=== PATIENT | male | born 1955 | race African-American/Black ===

== ENCOUNTER 2017-10-07 13:18 | Emergency (ER) | payer MEDICAID ==
[~2017-10-07] VITALS: Ht 177.8 cm; Wt 80.0 kg
[~2017-10-07 13:18] MED LIST: ALBUTEROL INH; PREDNISONE; SINGULAR; VICODIN; XOPENEX
[2017-10-07 13:20] VITALS: BP 118/94
== END 2017-10-07 16:31 | disposition left against medical advice (07) ==
LOC: ER 13:35
DX: S01.01XA Laceration without foreign body of scalp, initial encounter (principal); Y00.XXXA Assault by blunt object, initial encounter; Y93.89 Activity, other specified; Y92.488 Other paved roadways as the place of occurrence of the external cause
CPT/HCPCS: 99283

== ENCOUNTER 2018-05-28 16:17 | Inpatient (IN) | payer MEDICAID ==
[~2018-05-28] VITALS: Ht 167.6 cm; Wt 87.7 kg
[2018-05-28] MEDS ORDERED: ALBUTEROL (0.083%) 2.5MG/3ML NEB HHN STA (16:25)
[2018-05-28] MEDS ORDERED: IPRATROPIUM BROMIDE (0.02%) 0.5MG/2.5ML NEB HHN STA (16:25)
[2018-05-28] MEDS ORDERED: METHYLPREDNISOLONE SOD SUCC 125 MG/2 ML VIAL IV STA (16:25)
[2018-05-28] MEDS ORDERED: MAGNESIUM 2 G PREMIX 50 ML IV ONE (16:30)
[2018-05-28] MEDS ORDERED: IPRATROPIUM BROMIDE (0.02%) 0.5MG/2.5ML NEB ONE (16:32)
[2018-05-28] MEDS ORDERED: ALBUTEROL (0.083%) 2.5MG/3ML NEB ONE (16:32)
[2018-05-28 16:57] LABS: BASOPHILS % 0.7 % (0.0-2.0); CHLORIDE 109 mEq/L (98-107); EOSINOPHILS % 2.3 % (0.0-5.0); HEMATOCRIT. 39.7 % (42.0-52.0); LYMPHOCYTES % 50.8 % (20.0-50.0); MEAN CORPUSCULAR HEMOGLOBIN 32.1 pg (28.0-32.0); MEAN PLATELET VOLUME 8.4 fl (7.4-10.4); MONOCYTES % 9.8 % (2.0-8.0); NEUTROPHILS % 36.4 % (40.0-76.0); PLATELET 282 x1000/uL (130-400); RED BLOOD CELL COUNT 4.05 mill/uL (4.7-6.1)
[2018-05-28] MEDS ORDERED: ACETAMINOPHEN 325MG TABLET PO PRN (21:45)
[2018-05-28] MEDS ORDERED: CLONIDINE 0.1MG TABLET PO PRN (21:45)
[2018-05-28] MEDS ORDERED: ONDANSETRON HCL 4MG/2ML INJ IV PRN (21:45)
[2018-05-29] VITALS (13 sets, daily range): BP systolic 120–169; BP diastolic 71–95
[2018-05-29] MEDS ORDERED: DEXT 5%/0.45% NACL 1000ML 1,000 ML IV SCH (02:00)
[2018-05-29 02:19] LABS: FOLIC ACID (FOLATE) SERUM 18.4 ng/mL (>5.38)
[2018-05-29] MEDS: METHYLPREDNISOLONE SOD SUCC 40 MG/ML VIAL IV SCH ×2 (02:29→09:48)
[2018-05-29] MEDS ORDERED: POTASSIUM CHLORIDE 20MEQ TABLET SR PO NR (06:00)
[2018-05-29] MEDS: IPRATROPIUM/ALBUTEROL 0.5-3(2.5)MG/3ML NEB INH SCH ×2 (06:22→09:07)
[2018-05-29 07:24] LABS: BASOPHILS % 0.1 % (0.0-2.0); HEMATOCRIT. 38.8 % (42.0-52.0); LYMPHOCYTES % 10.8 % (20.0-50.0); MEAN CORPUSCULAR VOLUME 95.8 fL (80.0-94.0); MEAN PLATELET VOLUME 8.8 fl (7.4-10.4); MONOCYTES % 1.5 % (2.0-8.0); NEUTROPHILS % 87.6 % (40.0-76.0); PLATELET 267 x1000/uL (130-400); RED BLOOD CELL COUNT 4.05 mill/uL (4.7-6.1)
[2018-05-29] MEDS ORDERED: PNEUMOCOCCAL 23-VAL P-SAC VAC 0.5 ML IM ONE (08:00)
[2018-05-29 08:57] LABS: CHLORIDE 109 mEq/L (98-107)
[2018-05-29] MEDS ORDERED: INFLUENZA VIRUS VACCINE(AFLURIA) 0.5ML SYR IM ONE (10:00)
[2018-05-29] MEDS: FERROUS SULFATE 325MG TABLET PO SCH ×2 (12:55→16:00)
[2018-05-29] MEDS: POLYETHYLENE GLYCOL 3350 (17GM) 1 DOSE PACK PO SCH (12:55)
[2018-05-29] MEDS: NICOTINE 14MG PATCH TD SCH (16:00)
[2018-05-29] MEDS: IPRATROPIUM/ALBUTEROL 0.5-3(2.5)MG/3ML NEB HHN SCH ×2 (16:02→20:16)
[2018-05-29] MEDS: HYDROCODONE/ACETAMINOPHEN 5/325MG TABLET PO PRN (17:36)
[2018-05-29 19:47] LABS: CLARITY URINE CLEAR (CLEAR); COLOR URINE YELLOW (YELLOW); KETONES URINE NEGATIVE (NEGATIVE); LEUKOCYTE ESTERASE URINE NEGATIVE (NEGATIVE); NITRITE URINE NEGATIVE (NEGATIVE); OCCULT BLOOD URINE NEGATIVE (NEGATIVE); PH URINE 7.5 (4.5-8.0); PROTEIN URINE NEGATIVE (NEGATIVE); SPECIFIC GRAVITY URINE 1.024 (1.005-1.030); UROBILINOGEN URINE 0.2 E.U./dL (0.2-1.0)
[2018-05-29] MEDS: ATORVASTATIN CALCIUM 20MG TABLET PO SCH (20:38)
[2018-05-29] MEDS: LORAZEPAM 2MG/ML CPJ IV PRN (20:39)
[2018-05-29] MEDS: BENZONATATE 100MG CAPSULE PO PRN (22:28)
[2018-05-30] VITALS (9 sets, daily range): BP systolic 116–144; BP diastolic 72–93
[2018-05-30] MEDS: IPRATROPIUM/ALBUTEROL 0.5-3(2.5)MG/3ML NEB HHN SCH ×4 (01:29→20:25)
[2018-05-30] MEDS: LORAZEPAM 2MG/ML CPJ IV PRN ×2 (01:32→19:01)
[2018-05-30 07:27] LABS: BASOPHILS % 0.4 % (0.0-2.0); HEMATOCRIT. 38.3 % (42.0-52.0); HEMOGLOBIN. 12.7 g/dL (14.0-18.0); LYMPHOCYTES % 18.4 % (20.0-50.0); MEAN CORPUSCULAR HEMOGLOBIN 31.9 pg (28.0-32.0); MEAN CORPUSCULAR VOLUME 96.2 fL (80.0-94.0); MEAN PLATELET VOLUME 8.6 fl (7.4-10.4); MONOCYTES % 8.8 % (2.0-8.0); NEUTROPHILS % 72.4 % (40.0-76.0); PLATELET 255 x1000/uL (130-400); RED BLOOD CELL COUNT 3.99 mill/uL (4.7-6.1); RED CELL DISTRIBUTION WIDTH 15.2 % (11.6-14.6)
[2018-05-30 07:58] LABS: CHLORIDE 109 mEq/L (98-107)
[2018-05-30] MEDS: POLYETHYLENE GLYCOL 3350 (17GM) 1 DOSE PACK PO SCH (08:00)
[2018-05-30] MEDS: FERROUS SULFATE 325MG TABLET PO SCH ×2 (08:00→17:16)
[2018-05-30] MEDS: NICOTINE 14MG PATCH TD SCH (08:00)
[2018-05-30] MEDS: PREDNISONE 20MG TABLET PO SCH (08:01)
[2018-05-30] MEDS: BENZONATATE 100MG CAPSULE PO PRN ×2 (09:19→17:16)
[2018-05-30] MEDS: ATORVASTATIN CALCIUM 20MG TABLET PO SCH (20:40)
[2018-05-30] MEDS: HYDROCODONE/ACETAMINOPHEN 5/325MG TABLET PO PRN (20:50)
[2018-05-31] VITALS: BP 143/84
[2018-05-31] MEDS: HYDROCODONE/ACETAMINOPHEN 5/325MG TABLET PO PRN ×2 (00:31→11:08)
[2018-05-31 04:00] VITALS: BP 123/88
[2018-05-31 07:09] LABS: BASOPHILS % 0.5 % (0.0-2.0); EOSINOPHILS % 0.3 % (0.0-5.0); HEMATOCRIT. 38.6 % (42.0-52.0); HEMOGLOBIN. 12.9 g/dL (14.0-18.0); LYMPHOCYTES % 42.4 % (20.0-50.0); MEAN CORPUSCULAR HEMOGLOBIN 31.9 pg (28.0-32.0); MEAN CORPUSCULAR VOLUME 95.8 fL (80.0-94.0); MEAN PLATELET VOLUME 8.7 fl (7.4-10.4); MONOCYTES % 8.9 % (2.0-8.0); NEUTROPHILS % 47.9 % (40.0-76.0); PLATELET 254 x1000/uL (130-400); RED BLOOD CELL COUNT 4.03 mill/uL (4.7-6.1); RED CELL DISTRIBUTION WIDTH 14.5 % (11.6-14.6)
[2018-05-31 07:27] LABS: CHLORIDE 107 mEq/L (98-107)
[2018-05-31 08:00] VITALS: BP 121/81
[2018-05-31] MEDS: IPRATROPIUM/ALBUTEROL 0.5-3(2.5)MG/3ML NEB HHN SCH ×2 (08:32→15:00)
[2018-05-31] MEDS: NICOTINE 14MG PATCH TD SCH (09:22)
[2018-05-31] MEDS: POLYETHYLENE GLYCOL 3350 (17GM) 1 DOSE PACK PO SCH (09:22)
[2018-05-31] MEDS: BENZONATATE 100MG CAPSULE PO PRN (09:23)
[2018-05-31] MEDS: FERROUS SULFATE 325MG TABLET PO SCH ×2 (09:23→17:08)
[2018-05-31] MEDS: PREDNISONE 20MG TABLET PO SCH (09:23)
[2018-05-31 16:00] VITALS: BP 130/86
[2018-05-31] MEDS ORDERED: LACTULOSE 20G/30ML UDC PO SCH (17:00)
[2018-05-31 18:00] VITALS: BP 130/86
== END 2018-05-31 18:30 | disposition home or self-care (01) | DRG 133 ==
LOC: ER 16:17 → 3WST 16:59 → EDBEDREQSVC 17:03 → EDBEDREQ 17:03 → ENRESERV 21:44 → 8WST 05-30 08:56
PROVIDERS: ADMIT Internal Medicine; ATTEND Internal Medicine
PROC: 5A09357 Assistance with Respiratory Ventilation, Less than 24 Consecutive Hours, Continuous Positive Airway Pressure (ICD-10-PCS; principal; 2018-05-28)
DX: J96.00 Acute respiratory failure, unspecified whether with hypoxia or hypercapnia (principal); G95.0 Syringomyelia and syringobulbia; J44.1 Chronic obstructive pulmonary disease with (acute) exacerbation; G62.9 Polyneuropathy, unspecified; J45.901 Unspecified asthma with (acute) exacerbation; G45.9 Transient cerebral ischemic attack, unspecified; Z98.2 Presence of cerebrospinal fluid drainage device; I10 Essential (primary) hypertension; G89.4 Chronic pain syndrome; E87.6 Hypokalemia; R73.9 Hyperglycemia, unspecified; F41.1 Generalized anxiety disorder; F41.0 Panic disorder [episodic paroxysmal anxiety]; D50.9 Iron deficiency anemia, unspecified; E78.5 Hyperlipidemia, unspecified; F17.210 Nicotine dependence, cigarettes, uncomplicated; J98.11 Atelectasis; K59.09 Other constipation; Z79.899 Other long term (current) drug therapy; Z71.6 Tobacco abuse counseling; Z23 Encounter for immunization
CPT/HCPCS: 36415; 70551; 71045; 80048; 80061; 82607; 82728; 82746; 83036; 83540; 83550; 83880; 84443; 84484; 90686; 90732; 93005; 94640; 94660; 96365; 96366; 96375; 99291; J2060; J2920; J2930; J3475; J7512; J7611; J7620

== ENCOUNTER 2018-07-29 23:13 | Inpatient (IN) | payer MEDICAID ==
[~2018-07-29] VITALS: Ht 167.6 cm; Wt 88.0 kg
[2018-07-29] MEDS ORDERED: ONDANSETRON HCL 4MG/2ML INJ IV STA (23:21)
[2018-07-29] MEDS ORDERED: METHYLPREDNISOLONE SOD SUCC 125 MG/2 ML VIAL IV STA (23:21)
[2018-07-29] MEDS ORDERED: SODIUM CHLORIDE 0.9% 1,000 ML IV ONE (23:21)
[2018-07-29] MEDS ORDERED: IPRATROPIUM BROMIDE (0.02%) 0.5MG/2.5ML NEB HHN STA (23:21)
[2018-07-29] MEDS ORDERED: LEVOFLOXACIN 750MG PREMIX 150 ML IV ONE (23:30)
[2018-07-29] MEDS: ALBUTEROL (0.083%) 2.5MG/3ML NEB HHN SCH (23:30)
[2018-07-29] MEDS ORDERED: MAGNESIUM 2 G PREMIX 50 ML IV ONE (23:30)
[2018-07-29 23:52] LABS: BASOPHILS % 1.1 % (0.0-2.0); EOSINOPHILS % 2.3 % (0.0-5.0); HEMOGLOBIN. 13.7 g/dL (14.0-18.0); LYMPHOCYTES % 48.8 % (20.0-50.0); MEAN CORPUSCULAR HEMOGLOBIN 32.5 pg (28.0-32.0); MEAN CORPUSCULAR VOLUME 95.1 fL (80.0-94.0); MONOCYTES % 8.8 % (2.0-8.0); PLATELET 315 x1000/uL (130-400); RED BLOOD CELL COUNT 4.21 mill/uL (4.7-6.1); RED CELL DISTRIBUTION WIDTH 14.9 % (11.6-14.6)
[2018-07-30] VITALS (16 sets, daily range): BP systolic 125–156; BP diastolic 57–97
[2018-07-30 00:07] LABS: CHLORIDE 112 mEq/L (98-107)
[2018-07-30] MEDS: ALBUTEROL (0.083%) 2.5MG/3ML NEB HHN SCH ×2 (00:30)
[2018-07-30 02:36] LABS: BG BASE EXCESS -1.7 mmol/L (-2.0-2.0); BG BILEVEL POS AIRWAY PRESSURE 18/5; BG CARBOXYHEMOGLOBIN 2.6 % (0.5-1.5); BG DEOXYHEMOGLOBIN 2.6 % (0.0-5.0); BG FRACTION INSPIRED OXYGEN 40; BG HCO3 ACT 24.4 mmol/L (22.0-26.0); BG METHEMOGLOBIN 0.3 % (0.0-1.5); BG OXYGEN SATURATION 97.3 % (92.0-98.5); BG OXYHEMOGLOBIN 94.5 % (94.0-97.0); BG PCO2 45.9 mmHg (35.0-45.0); BG PH 7.343 (7.350-7.450); BG PO2 102.6 mmHg (75.0-100.0); BG SAMPLE SITE LEFT RADIAL; BG TOTAL HEMOGLOBIN 15.2 g/dL (12.0-18.0); BG VENT MODE MASK - BIPAP; BG VENT RATE 16 set
[2018-07-30] MEDS ORDERED: DOCUSATE SODIUM 100MG CAPSULE PO PRN (09:30)
[2018-07-30] MEDS ORDERED: CLONIDINE 0.1MG TABLET PO PRN (09:30)
[2018-07-30] MEDS ORDERED: ENOXAPARIN 40MG/0.4ML SYR SUBCUT SCH (09:30)
[2018-07-30] MEDS ORDERED: LORAZEPAM 2MG/ML CPJ IV PRN (09:30)
[2018-07-30] MEDS ORDERED: ONDANSETRON HCL 4MG/2ML INJ IV PRN (09:30)
[2018-07-30] MEDS ORDERED: ACETAMINOPHEN 325MG TABLET PO PRN (09:30)
[2018-07-30] MEDS ORDERED: METHYLPREDNISOLONE SOD SUCC 125 MG/2 ML VIAL IV SCH (10:00)
[2018-07-30] MEDS: GUAIFENESIN 200MG TABLET PO SCH ×2 (10:41→20:18)
[2018-07-30] MEDS: ENOXAPARIN 30MG/0.3ML SYR SUBCUT SCH ×2 (10:42→20:18)
[2018-07-30] MEDS ORDERED: IPRATROPIUM/ALBUTEROL 0.5-3(2.5)MG/3ML NEB HHN PRN (11:30)
[2018-07-30] MEDS ORDERED: TERBUTALINE SULFATE 1MG/ML VIAL SUBCUT SCH (11:30)
[2018-07-30] MEDS: IPRATROPIUM/ALBUTEROL 0.5-3(2.5)MG/3ML NEB HHN SCH ×4 (11:58→21:45)
[2018-07-30] MEDS: METHYLPREDNISOLONE SOD SUCC 125 MG/2 ML VIAL IV SCH ×3 (13:11→23:26)
[2018-07-30] MEDS: AZITHROMYCIN 500 MG in DEXT 5% WATER 250 ML IV SCH (13:11)
[2018-07-30] MEDS ORDERED: NICOTINE 14MG PATCH TD SCH (16:30)
[2018-07-30] MEDS: POLYETHYLENE GLYCOL 3350 (17GM) 1 DOSE PACK PO SCH (17:23)
[2018-07-30] MEDS ORDERED: LORAZEPAM 0.5MG TABLET PO PRN (18:30)
[2018-07-30] MEDS ORDERED: PNEUMOCOCCAL 23-VAL P-SAC VAC 0.5 ML IM ONE (19:15)
[2018-07-30] MEDS: FAMOTIDINE 20MG TABLET PO SCH (20:18)
[2018-07-30] MEDS: FLUTICASONE PROPIONATE 50MCG/SPRAY BOTTLE BOTHNSTRLS SCH (22:10)
[2018-07-31] VITALS (20 sets, daily range): BP systolic 110–153; BP diastolic 44–112
[2018-07-31] MEDS: IPRATROPIUM/ALBUTEROL 0.5-3(2.5)MG/3ML NEB HHN SCH ×6 (00:35→20:18)
[2018-07-31] MEDS: METHYLPREDNISOLONE SOD SUCC 125 MG/2 ML VIAL IV SCH ×3 (05:46→18:14)
[2018-07-31 07:31] LABS: BASOPHILS % 0.3 % (0.0-2.0); HEMATOCRIT. 38.8 % (42.0-52.0); HEMOGLOBIN. 12.8 g/dL (14.0-18.0); LYMPHOCYTES % 11.4 % (20.0-50.0); MEAN CORPUSCULAR HEMOGLOBIN 31.4 pg (28.0-32.0); MEAN CORPUSCULAR VOLUME 95.3 fL (80.0-94.0); MEAN PLATELET VOLUME 8.6 fl (7.4-10.4); MONOCYTES % 3.3 % (2.0-8.0); PLATELET 317 x1000/uL (130-400); RED BLOOD CELL COUNT 4.07 mill/uL (4.7-6.1)
[2018-07-31 07:36] LABS: CHLORIDE 109 mEq/L (98-107)
[2018-07-31] MEDS: LORATADINE 10MG TABLET PO SCH (10:14)
[2018-07-31] MEDS: ENOXAPARIN 30MG/0.3ML SYR SUBCUT SCH ×2 (10:14→20:56)
[2018-07-31] MEDS: POLYETHYLENE GLYCOL 3350 (17GM) 1 DOSE PACK PO SCH (10:15)
[2018-07-31] MEDS: GUAIFENESIN 200MG TABLET PO SCH ×2 (10:15→20:56)
[2018-07-31] MEDS: NICOTINE 21MG PATCH TD SCH (10:16)
[2018-07-31] MEDS: FLUTICASONE PROPIONATE 50MCG/SPRAY BOTTLE BOTHNSTRLS SCH ×2 (10:16→20:56)
[2018-07-31] MEDS: AZITHROMYCIN 500 MG in DEXT 5% WATER 250 ML IV SCH (10:33)
[2018-07-31] MEDS ORDERED: TERBUTALINE SULFATE 1MG/ML VIAL SUBCUT NR (11:45)
[2018-07-31 16:32] LABS: CLARITY URINE CLEAR (CLEAR); COLOR URINE YELLOW (YELLOW); KETONES URINE NEGATIVE (NEGATIVE); LEUKOCYTE ESTERASE URINE NEGATIVE (NEGATIVE); NITRITE URINE NEGATIVE (NEGATIVE); OCCULT BLOOD URINE NEGATIVE (NEGATIVE); PROTEIN URINE NEGATIVE (NEGATIVE); SPECIFIC GRAVITY URINE 1.013 (1.005-1.030); UROBILINOGEN URINE 0.2 E.U./dL (0.2-1.0)
[2018-07-31 16:44] LABS: *AMPHETAMINES SCREEN URINE NEGATIVE (NEGATIVE); *BARBITURATES SCREEN URINE NEGATIVE (NEGATIVE); *BENZODIAZEPINES SCREEN URINE NEGATIVE (NEGATIVE); *COCAINE SCREEN URINE PRESUMTIVE POSITIVE (NEGATIVE)
[2018-07-31 16:45] LABS: CANNABINOID URINE SCREEN NEGATIVE (NEGATIVE); METHADONE URINE SCREEN NEGATIVE (NEGATIVE); OPIATES URINE SCREEN NEGATIVE (NEGATIVE); PHENCYCLIDINE URINE SCREEN NEGATIVE (NEGATIVE)
[2018-07-31] MEDS: MONTELUKAST SODIUM 10MG TABLET PO SCH (18:14)
[2018-07-31] MEDS: FAMOTIDINE 20MG TABLET PO SCH (20:56)
[2018-08-01] VITALS (24 sets, daily range): BP systolic 105–140; BP diastolic 50–95
[2018-08-01] MEDS: METHYLPREDNISOLONE SOD SUCC 125 MG/2 ML VIAL IV SCH ×5 (00:02→23:49)
[2018-08-01] MEDS: ALPRAZOLAM 0.5 MG TABLET PO PRN ×3 (00:06→23:56)
[2018-08-01] MEDS: IPRATROPIUM/ALBUTEROL 0.5-3(2.5)MG/3ML NEB HHN SCH ×6 (04:00→20:03)
[2018-08-01] MEDS: LORATADINE 10MG TABLET PO SCH (08:35)
[2018-08-01] MEDS: GUAIFENESIN 200MG TABLET PO SCH ×2 (08:35→21:31)
[2018-08-01] MEDS: NICOTINE 21MG PATCH TD SCH (08:35)
[2018-08-01] MEDS: POLYETHYLENE GLYCOL 3350 (17GM) 1 DOSE PACK PO SCH (08:36)
[2018-08-01] MEDS: ENOXAPARIN 30MG/0.3ML SYR SUBCUT SCH ×2 (08:36→21:31)
[2018-08-01] MEDS: FLUTICASONE PROPIONATE 50MCG/SPRAY BOTTLE BOTHNSTRLS SCH ×2 (08:37→21:32)
[2018-08-01] MEDS: AZITHROMYCIN 500 MG in DEXT 5% WATER 250 ML IV SCH (11:42)
[2018-08-01] MEDS: MONTELUKAST SODIUM 10MG TABLET PO SCH (18:22)
[2018-08-01] MEDS: FAMOTIDINE 20MG TABLET PO SCH (21:31)
[2018-08-02] VITALS (12 sets, daily range): BP systolic 94–144; BP diastolic 55–95
[2018-08-02] MEDS: IPRATROPIUM/ALBUTEROL 0.5-3(2.5)MG/3ML NEB HHN SCH ×6 (00:07→20:21)
[2018-08-02] MEDS: METHYLPREDNISOLONE SOD SUCC 125 MG/2 ML VIAL IV SCH ×2 (05:44→12:47)
[2018-08-02] MEDS: NICOTINE 21MG PATCH TD SCH (09:13)
[2018-08-02] MEDS: POLYETHYLENE GLYCOL 3350 (17GM) 1 DOSE PACK PO SCH (09:13)
[2018-08-02] MEDS: GUAIFENESIN 200MG TABLET PO SCH ×2 (09:13→22:03)
[2018-08-02] MEDS: FLUTICASONE PROPIONATE 50MCG/SPRAY BOTTLE BOTHNSTRLS SCH (09:13)
[2018-08-02] MEDS: ENOXAPARIN 30MG/0.3ML SYR SUBCUT SCH ×2 (09:14→21:03)
[2018-08-02] MEDS: LORATADINE 10MG TABLET PO SCH (09:14)
[2018-08-02] MEDS: AZITHROMYCIN 500 MG in DEXT 5% WATER 250 ML IV SCH (12:47)
[2018-08-02] MEDS ORDERED: LACTULOSE 20G/30ML UDC PO NR (13:00)
[2018-08-02] MEDS: ALPRAZOLAM 0.5 MG TABLET PO PRN (14:37)
[2018-08-02 14:54] LABS: BG BASE EXCESS -0.3 mmol/L (-2.0-2.0); BG CARBOXYHEMOGLOBIN 0.6 % (0.5-1.5); BG DEOXYHEMOGLOBIN 3.8 % (0.0-5.0); BG FRACTION INSPIRED OXYGEN 32; BG HCO3 ACT 23.7 mmol/L (22.0-26.0); BG METHEMOGLOBIN 0.3 % (0.0-1.5); BG OXYGEN SATURATION 96.2 % (92.0-98.5); BG OXYHEMOGLOBIN 95.3 % (94.0-97.0); BG PCO2 36.8 mmHg (35.0-45.0); BG PH 7.427 (7.350-7.450); BG PO2 79.6 mmHg (75.0-100.0); BG SAMPLE SITE LEFT RADIAL; BG TOTAL HEMOGLOBIN 13.9 g/dL (12.0-18.0); BG VENT MODE NASAL CANNULA
[2018-08-02] MEDS ORDERED: LORAZEPAM 2MG/ML CPJ IV PRN (17:30)
[2018-08-02] MEDS: MONTELUKAST SODIUM 10MG TABLET PO SCH (17:45)
[2018-08-02] MEDS: PREDNISONE 20MG TABLET PO SCH (17:45)
[2018-08-02] MEDS ORDERED: IOHEXOL-350 100 ML BOTTLE ONE (19:20)
[2018-08-02] MEDS ORDERED: ALPRAZOLAM 0.5 MG TABLET PO PRN (19:45)
[2018-08-02] MEDS: FAMOTIDINE 20MG TABLET PO SCH (21:03)
[2018-08-03] VITALS: BP 151/98
[2018-08-03] MEDS: IPRATROPIUM/ALBUTEROL 0.5-3(2.5)MG/3ML NEB HHN SCH ×5 (00:15→16:12)
[2018-08-03 02:00] VITALS: BP 124/83
[2018-08-03 04:00] VITALS: BP 158/88
[2018-08-03 06:00] VITALS: BP 143/92
[2018-08-03 07:00] LABS: BASOPHILS % 0.4 % (0.0-2.0); EOSINOPHILS % 0.1 % (0.0-5.0); HEMATOCRIT. 39.9 % (42.0-52.0); HEMOGLOBIN. 13.4 g/dL (14.0-18.0); LYMPHOCYTES % 16.5 % (20.0-50.0); MEAN CORPUSCULAR HEMOGLOBIN 32.3 pg (28.0-32.0); MEAN CORPUSCULAR VOLUME 96.2 fL (80.0-94.0); MEAN PLATELET VOLUME 8.3 fl (7.4-10.4); MONOCYTES % 8.8 % (2.0-8.0); NEUTROPHILS % 74.2 % (40.0-76.0); PLATELET 338 x1000/uL (130-400); RED BLOOD CELL COUNT 4.15 mill/uL (4.7-6.1); RED CELL DISTRIBUTION WIDTH 15.5 % (11.6-14.6)
[2018-08-03 07:21] LABS: CHLORIDE 106 mEq/L (98-107)
[2018-08-03 08:00] VITALS: BP 139/88
[2018-08-03] MEDS: ENOXAPARIN 30MG/0.3ML SYR SUBCUT SCH (08:47)
[2018-08-03] MEDS: POLYETHYLENE GLYCOL 3350 (17GM) 1 DOSE PACK PO SCH (08:47)
[2018-08-03] MEDS: LORATADINE 10MG TABLET PO SCH (08:48)
[2018-08-03] MEDS: NICOTINE 21MG PATCH TD SCH (08:48)
[2018-08-03] MEDS: PREDNISONE 20MG TABLET PO SCH (08:48)
[2018-08-03] MEDS: GUAIFENESIN 200MG TABLET PO SCH (08:51)
[2018-08-03] MEDS ORDERED: AZITHROMYCIN 500 MG TABLET PO SCH (09:00)
[2018-08-03 09:21] LABS: BG BASE EXCESS 0.1 mmol/L (-2.0-2.0); BG CARBOXYHEMOGLOBIN 0.8 % (0.5-1.5); BG DEOXYHEMOGLOBIN 6.1 % (0.0-5.0); BG FRACTION INSPIRED OXYGEN 21; BG HCO3 ACT 24.2 mmol/L (22.0-26.0); BG METHEMOGLOBIN 0.3 % (0.0-1.5); BG OXYGEN SATURATION 93.8 % (92.0-98.5); BG OXYHEMOGLOBIN 92.8 % (94.0-97.0); BG PCO2 37.8 mmHg (35.0-45.0); BG PH 7.424 (7.350-7.450); BG PO2 66.5 mmHg (75.0-100.0); BG SAMPLE SITE RIGHT BRACHIAL; BG TOTAL HEMOGLOBIN 14.4 g/dL (12.0-18.0); BG VENT MODE ROOM AIR
[2018-08-03] MEDS ORDERED: PREDNISONE 20MG TABLET PO NR (14:15)
[2018-08-03] MEDS: MONTELUKAST SODIUM 10MG TABLET PO SCH (17:50)
[2018-08-03 18:11] VITALS: BP 117/71
[2018-08-04] MEDS ORDERED: PREDNISONE 20MG TABLET PO SCH (09:00)
== END 2018-08-03 19:25 | disposition home or self-care (01) | DRG 816 ==
LOC: ER 23:13 → 5EST 07-30 02:34 → EDBEDREQDT 07-30 02:47 → EDBEDREQ 07-30 02:47 → EDBEDREQTM 07-30 02:47 → ENRESERV 07-30 08:24
PROVIDERS: ADMIT Internal Medicine; ATTEND Internal Medicine
PROC: 5A09357 Assistance with Respiratory Ventilation, Less than 24 Consecutive Hours, Continuous Positive Airway Pressure (ICD-10-PCS; principal; 2018-07-30)
PROC: 5A09357 Assistance with Respiratory Ventilation, Less than 24 Consecutive Hours, Continuous Positive Airway Pressure (ICD-10-PCS; 2018-07-31)
DX: T40.5X1A Poisoning by cocaine, accidental (unintentional), initial encounter (principal); J96.21 Acute and chronic respiratory failure with hypoxia; J68.0 Bronchitis and pneumonitis due to chemicals, gases, fumes and vapors; G62.9 Polyneuropathy, unspecified; R13.10 Dysphagia, unspecified; E11.9 Type 2 diabetes mellitus without complications; D50.9 Iron deficiency anemia, unspecified; I10 Essential (primary) hypertension; F41.0 Panic disorder [episodic paroxysmal anxiety]; G89.4 Chronic pain syndrome; K59.09 Other constipation; F14.90 Cocaine use, unspecified, uncomplicated; F17.210 Nicotine dependence, cigarettes, uncomplicated; Y92.89 Other specified places as the place of occurrence of the external cause; Z79.84 Long term (current) use of oral hypoglycemic drugs; Z98.2 Presence of cerebrospinal fluid drainage device; Z71.6 Tobacco abuse counseling
CPT/HCPCS: 36415; 36600; 71045; 71275; 80048; 80305; 82375; 82805; 82962; 83605; 83880; 84484; 87804; 92610; 93005; 93970; 94640; 94644; 94660; 96374; 97162; 97166; 99285; J0456; J1650; J1956; J2060; J2405; J2930; J3105; J3475; J7030; J7040; J7050; J7060; J7512; J7611; J7620; Q9967

== ENCOUNTER 2018-10-22 14:35 | Inpatient (IN) | payer MEDICAID ==
[~2018-10-22] VITALS: Ht 168.9 cm; Wt 88.5 kg
[~2018-10-22 14:35] MED LIST changes: -PREDNISONE; -VICODIN
[2018-10-22] MEDS ORDERED: SODIUM CHLORIDE 0.9% 1,000 ML IV ONE (15:15)
[2018-10-22 15:38] LABS: BASOPHILS % 0.9 % (0.0-2.0); HEMOGLOBIN. 13.3 g/dL (14.0-18.0); LYMPHOCYTES % 40.5 % (20.0-50.0); MEAN CORPUSCULAR HEMOGLOBIN 32.7 pg (28.0-32.0); MEAN CORPUSCULAR VOLUME 98.5 fL (80.0-94.0); MEAN PLATELET VOLUME 8.7 fl (7.4-10.4); MONOCYTES % 9.1 % (2.0-8.0); NEUTROPHILS % 46.5 % (40.0-76.0); PLATELET 261 x1000/uL (130-400); RED BLOOD CELL COUNT 4.07 mill/uL (4.7-6.1); RED CELL DISTRIBUTION WIDTH 14.8 % (11.6-14.6)
[2018-10-22 15:43] LABS: CHLORIDE 108 mEq/L (98-107)
[2018-10-22 15:45] LABS: PROTHROMBIN TIME 10.1 sec (9.6-11.0)
[2018-10-22 15:48] LABS: ETHANOL BLOOD < 10 mg/dL
[2018-10-22] MEDS ORDERED: ALBUTEROL (0.083%) 2.5MG/3ML NEB HHN STA (15:48)
[2018-10-22] MEDS ORDERED: METHYLPREDNISOLONE SOD SUCC 125 MG/2 ML VIAL IV STA (15:48)
[2018-10-22] MEDS ORDERED: IPRATROPIUM BROMIDE (0.02%) 0.5MG/2.5ML NEB HHN STA (15:48)
[2018-10-22] MEDS ORDERED: ASPIRIN 325MG EC TABLET PO ONE ×2 (16:15→18:15)
[2018-10-22 23:16] VITALS: BP 188/87
[2018-10-23] VITALS: BP 170/89
[2018-10-23] MEDS ORDERED: MORPHINE SULFATE 2 MG/ML CPJ (NOT FOR IM USE) IV PRN (00:15)
[2018-10-23] MEDS ORDERED: CLONIDINE 0.1MG TABLET PO PRN (00:15)
[2018-10-23] MEDS: IPRATROPIUM/ALBUTEROL 0.5-3(2.5)MG/3ML NEB HHN PRN ×3 (01:01→15:41)
[2018-10-23 04:00] VITALS: BP 142/83
[2018-10-23 08:00] VITALS: BP 139/82
[2018-10-23] MEDS: AMLODIPINE 10MG TABLET PO SCH (08:28)
[2018-10-23] MEDS: ASPIRIN 325MG TABLET PO SCH (08:28)
[2018-10-23] MEDS ORDERED: ASPIRIN 325MG TABLET PO SCH (09:00)
[2018-10-23 12:00] VITALS: BP 134/79
[2018-10-23 16:00] VITALS: BP 134/83
[2018-10-23] MEDS ORDERED: ACETAMINOPHEN 325MG TABLET PO PRN (17:45)
[2018-10-23] MEDS ORDERED: ONDANSETRON HCL 4MG/2ML INJ IV PRN (17:45)
[2018-10-23 20:00] VITALS: BP 133/63
[2018-10-23] MEDS: ENOXAPARIN 30MG/0.3ML SYR SUBCUT SCH (21:46)
[2018-10-24] VITALS: BP 134/83
[2018-10-24] MEDS: IPRATROPIUM/ALBUTEROL 0.5-3(2.5)MG/3ML NEB HHN PRN ×2 (02:15→20:19)
[2018-10-24 04:00] VITALS: BP 154/98
[2018-10-24 08:00] VITALS: BP 149/89
[2018-10-24 08:01] LABS: BASOPHILS % 0.6 % (0.0-2.0); EOSINOPHILS % 0.6 % (0.0-5.0); HEMATOCRIT. 37.1 % (42.0-52.0); HEMOGLOBIN. 12.6 g/dL (14.0-18.0); LYMPHOCYTES % 41.5 % (20.0-50.0); MEAN CORPUSCULAR HEMOGLOBIN 33.1 pg (28.0-32.0); MEAN CORPUSCULAR VOLUME 97.8 fL (80.0-94.0); MEAN PLATELET VOLUME 9.4 fl (7.4-10.4); MONOCYTES % 9.8 % (2.0-8.0); NEUTROPHILS % 47.5 % (40.0-76.0); PLATELET 254 x1000/uL (130-400); RED BLOOD CELL COUNT 3.79 mill/uL (4.7-6.1); RED CELL DISTRIBUTION WIDTH 14.4 % (11.6-14.6)
[2018-10-24] MEDS: AMLODIPINE 10MG TABLET PO SCH (08:17)
[2018-10-24] MEDS: ASPIRIN 325MG TABLET PO SCH (08:17)
[2018-10-24] MEDS: ENOXAPARIN 30MG/0.3ML SYR SUBCUT SCH ×2 (08:18→20:32)
[2018-10-24 08:28] LABS: CHLORIDE 109 mEq/L (98-107)
[2018-10-24 08:36] LABS: LDL CHOLESTEROL 88 mg/dL (5-100)
[2018-10-24 08:38] LABS: HDL CHOLESTEROL 118 mg/dL (40-59)
[2018-10-24 12:00] VITALS: BP 142/82
[2018-10-24 16:00] VITALS: BP 140/80
[2018-10-24] MEDS ORDERED: BISACODYL 5MG TABLET PO PRN (17:00)
[2018-10-24] MEDS: DOCUSATE SODIUM 250MG CAPSULE PO SCH (17:33)
[2018-10-24 20:00] VITALS: BP 143/84
[2018-10-25 08:00] VITALS: BP 139/90
[2018-10-25] MEDS: DOCUSATE SODIUM 250MG CAPSULE PO SCH (08:37)
[2018-10-25] MEDS: ASPIRIN 325MG TABLET PO SCH (08:37)
[2018-10-25] MEDS: AMLODIPINE 10MG TABLET PO SCH (08:37)
[2018-10-25] MEDS: ENOXAPARIN 30MG/0.3ML SYR SUBCUT SCH (08:38)
[2018-10-25] MEDS: IPRATROPIUM/ALBUTEROL 0.5-3(2.5)MG/3ML NEB HHN PRN (10:00)
[2018-10-25 10:47] VITALS: BP 139/90
[2018-10-25 12:00] VITALS: BP 122/97
[2018-10-26] MEDS ORDERED: ENOXAPARIN 40MG/0.4ML SYR SUBCUT SCH (09:00)
== END 2018-10-25 13:30 | disposition home or self-care (01) | DRG 42 ==
LOC: ER 14:35 → 5WST 18:04 → ENRESERV 20:32
PROVIDERS: ADMIT Internal Medicine; ATTEND Internal Medicine
DX: G95.0 Syringomyelia and syringobulbia (principal); E87.8 Other disorders of electrolyte and fluid balance, not elsewhere classified; D64.9 Anemia, unspecified; E11.9 Type 2 diabetes mellitus without complications; H53.2 Diplopia; G89.29 Other chronic pain; I10 Essential (primary) hypertension; R53.1 Weakness; J44.9 Chronic obstructive pulmonary disease, unspecified; J45.909 Unspecified asthma, uncomplicated; Z79.899 Other long term (current) drug therapy; G95.89 Other specified diseases of spinal cord
CPT/HCPCS: 36415; 70496; 70498; 70551; 71045; 72141; 80048; 80061; 80320; 82962; 84484; 93005; 94640; 97162; 99285; J1650; J2930; J7030; J7611; J7620; G0480

== ENCOUNTER 2019-05-03 20:35 | Inpatient (IN) | payer MEDICAID ==
[~2019-05-03] VITALS: Ht 165.1 cm; Wt 85.8 kg
[2019-05-03] MEDS ORDERED: IPRATROPIUM/ALBUTEROL 0.5-3(2.5)MG/3ML NEB ONE (20:45)
[2019-05-03] MEDS ORDERED: ALBUTEROL (0.083%) 2.5MG/3ML NEB HHN STA (20:46)
[2019-05-03] MEDS ORDERED: IPRATROPIUM BROMIDE (0.02%) 0.5MG/2.5ML NEB HHN STA (20:46)
[2019-05-03] MEDS ORDERED: METHYLPREDNISOLONE SOD SUCC 125 MG/2 ML VIAL IV STA (20:46)
[2019-05-03] MEDS ORDERED: CEFTRIAXONE 1 G PREMIX 50 ML IV ONE (21:00)
[2019-05-03] MEDS ORDERED: SODIUM CHLORIDE 0.9% 1000ML BAG (SEPSIS BOLUS) IV ONE (21:00)
[2019-05-03] MEDS ORDERED: AZITHROMYCIN 500 MG in DEXT 5% WATER 250 ML IV SCH (21:00)
[2019-05-03] MEDS ORDERED: MAGNESIUM 2 G PREMIX 50 ML IV ONE (21:00)
[2019-05-03 21:02] LABS: BASOPHILS % 0.7 % (0.0-2.0); EOSINOPHILS % 2.4 % (0.0-5.0); HEMATOCRIT. 40.5 % (42.0-52.0); HEMOGLOBIN. 13.6 g/dL (14.0-18.0); LYMPHOCYTES % 14.1 % (20.0-50.0); MEAN CORPUSCULAR HEMOGLOBIN 31.8 pg (28.0-32.0); MEAN CORPUSCULAR VOLUME 94.6 fL (80.0-94.0); MEAN PLATELET VOLUME 8.4 fl (7.4-10.4); MONOCYTES % 6.3 % (2.0-8.0); NEUTROPHILS % 76.5 % (40.0-76.0); PLATELET 305 x1000/uL (130-400); RED BLOOD CELL COUNT 4.28 mill/uL (4.7-6.1)
[2019-05-03 21:10] LABS: CHLORIDE 110 mEq/L (98-107)
[2019-05-03 21:30] LABS: BG BASE EXCESS -0.6 mmol/L (-2.0-2.0); BG BILEVEL POS AIRWAY PRESSURE 15/5; BG CARBOXYHEMOGLOBIN 1.2 % (0.5-1.5); BG FRACTION INSPIRED OXYGEN 50; BG METHEMOGLOBIN 0.3 % (0.0-1.5); BG OXYHEMOGLOBIN 97.5 % (94.0-97.0); BG PCO2 44.8 mmHg (35.0-45.0); BG PH 7.364 (7.350-7.450); BG PO2 207.2 mmHg (75.0-100.0); BG SAMPLE SITE RIGHT FEMORAL; BG TOTAL HEMOGLOBIN 12.9 g/dL (12.0-18.0); BG VENT MODE MASK - BIPAP
[2019-05-03] MEDS ORDERED: ACETAMINOPHEN 325MG TABLET PO ONE (23:15)
[2019-05-04] MEDS ORDERED: ALBUTEROL (0.083%) 2.5MG/3ML NEB HHN STA (09:04)
[2019-05-04] MEDS ORDERED: ONDANSETRON HCL 4MG/2ML INJ IV PRN (09:15)
[2019-05-04] MEDS ORDERED: CLONIDINE 0.1MG TABLET PO PRN (09:15)
[2019-05-04] MEDS ORDERED: DIPHENHYDRAMINE 50MG/ML VIAL IV PRN (09:15)
[2019-05-04 09:37] LABS: PHOSPHORUS 3.6 mg/dL (2.5-4.9)
[2019-05-04] MEDS: IPRATROPIUM/ALBUTEROL 0.5-3(2.5)MG/3ML NEB HHN PRN ×2 (14:32→17:07)
[2019-05-04] MEDS: METHYLPREDNISOLONE SOD SUCC 40 MG/ML VIAL IV SCH (20:08)
[2019-05-04] MEDS: IPRATROPIUM/ALBUTEROL 0.5-3(2.5)MG/3ML NEB HHN SCH (20:11)
[2019-05-04 22:00] VITALS: BP 146/98
[2019-05-04 22:30] VITALS: BP 146/98
[2019-05-04] MEDS: ACETAMINOPHEN 325MG TABLET PO PRN (22:35)
[2019-05-05] VITALS (12 sets, daily range): BP systolic 119–168; BP diastolic 56–97
[2019-05-05] MEDS: AZITHROMYCIN 500 MG TABLET PO SCH ×2 (00:04→09:08)
[2019-05-05] MEDS: ACETYLCYSTEINE 100MG/ML 10% VIAL 4ML INH SCH ×4 (00:15→16:03)
[2019-05-05] MEDS: IPRATROPIUM/ALBUTEROL 0.5-3(2.5)MG/3ML NEB HHN SCH ×6 (01:09→20:17)
[2019-05-05] MEDS: BUDESONIDE 0.5MG/2ML NEB HHN SCH ×3 (01:10→20:18)
[2019-05-05] MEDS: METHYLPREDNISOLONE SOD SUCC 40 MG/ML VIAL IV SCH ×3 (04:55→21:28)
[2019-05-05 06:44] LABS: CHLORIDE 109 mEq/L (98-107)
[2019-05-05 07:14] LABS: LDL CHOLESTEROL 75 mg/dL (5-100)
[2019-05-05 07:21] LABS: HDL CHOLESTEROL 138 mg/dL (40-59)
[2019-05-05 07:59] LABS: BASOPHILS % 0.2 % (0.0-2.0); HEMATOCRIT. 37.1 % (42.0-52.0); HEMOGLOBIN. 12.5 g/dL (14.0-18.0); LYMPHOCYTES % 7.5 % (20.0-50.0); MEAN CORPUSCULAR HEMOGLOBIN 32.5 pg (28.0-32.0); MEAN CORPUSCULAR VOLUME 96.2 fL (80.0-94.0); MEAN PLATELET VOLUME 8.7 fl (7.4-10.4); MONOCYTES % 6.7 % (2.0-8.0); NEUTROPHILS % 85.6 % (40.0-76.0); PLATELET 253 x1000/uL (130-400); RED BLOOD CELL COUNT 3.86 mill/uL (4.7-6.1); RED CELL DISTRIBUTION WIDTH 15.1 % (11.6-14.6)
[2019-05-05] MEDS: ENOXAPARIN 40MG/0.4ML SYR SUBCUT SCH (09:08)
[2019-05-05] MEDS: FOLIC ACID/VITAMIN B COMP W-C TABLET PO SCH (09:08)
[2019-05-05] MEDS: MULTIVITAMINS,THER W-MINERALS TABLET PO SCH (09:08)
[2019-05-05] MEDS: NICOTINE 21MG PATCH TD SCH (09:08)
[2019-05-05] MEDS: ACETAMINOPHEN 325MG TABLET PO PRN (11:52)
[2019-05-05] MEDS: GUAIFENESIN-DM 200MG-20MG/10ML UDC PO PRN ×2 (11:52→16:24)
[2019-05-05] MEDS ORDERED: INFLUENZA VIRUS VACCINE(AFLURIA) 0.5ML SYR IM ONE (12:00)
[2019-05-05] MEDS: BENZONATATE 100MG CAPSULE PO SCH ×2 (13:56→21:29)
[2019-05-05] MEDS: LORATADINE 10MG TABLET PO SCH (13:56)
[2019-05-05] MEDS ORDERED: MONTELUKAST SODIUM 10MG TABLET PO SCH (17:00)
[2019-05-05] MEDS: FAMOTIDINE 20MG/2ML VIAL IV SCH (21:29)
[2019-05-06] VITALS (10 sets, daily range): BP systolic 115–148; BP diastolic 57–93
[2019-05-06] MEDS: IPRATROPIUM/ALBUTEROL 0.5-3(2.5)MG/3ML NEB HHN SCH ×5 (00:15→16:12)
[2019-05-06] MEDS: METHYLPREDNISOLONE SOD SUCC 40 MG/ML VIAL IV SCH ×2 (04:50→12:44)
[2019-05-06] MEDS: BENZONATATE 100MG CAPSULE PO SCH ×2 (06:01→12:44)
[2019-05-06 07:09] LABS: CHLORIDE 107 mEq/L (98-107)
[2019-05-06 07:20] LABS: BASOPHILS % 0.3 % (0.0-2.0); HEMATOCRIT. 37.3 % (42.0-52.0); HEMOGLOBIN. 12.8 g/dL (14.0-18.0); LYMPHOCYTES % 11.8 % (20.0-50.0); MEAN CORPUSCULAR HEMOGLOBIN 32.9 pg (28.0-32.0); MEAN CORPUSCULAR VOLUME 95.5 fL (80.0-94.0); MEAN PLATELET VOLUME 8.4 fl (7.4-10.4); MONOCYTES % 7.9 % (2.0-8.0); PLATELET 277 x1000/uL (130-400); RED CELL DISTRIBUTION WIDTH 15.6 % (11.6-14.6)
[2019-05-06] MEDS: IPRATROPIUM/ALBUTEROL 0.5-3(2.5)MG/3ML NEB HHN PRN (08:05)
[2019-05-06] MEDS: BUDESONIDE 0.5MG/2ML NEB HHN SCH (08:05)
[2019-05-06] MEDS: ACETYLCYSTEINE 100MG/ML 10% VIAL 4ML INH SCH ×2 (08:05→16:12)
[2019-05-06] MEDS: AZITHROMYCIN 500 MG TABLET PO SCH (08:22)
[2019-05-06] MEDS: LORATADINE 10MG TABLET PO SCH (08:22)
[2019-05-06] MEDS: FAMOTIDINE 20MG/2ML VIAL IV SCH (08:22)
[2019-05-06] MEDS: MULTIVITAMINS,THER W-MINERALS TABLET PO SCH (08:22)
[2019-05-06] MEDS: FOLIC ACID/VITAMIN B COMP W-C TABLET PO SCH (08:22)
[2019-05-06] MEDS: GUAIFENESIN-DM 200MG-20MG/10ML UDC PO PRN (08:22)
[2019-05-06] MEDS: ENOXAPARIN 40MG/0.4ML SYR SUBCUT SCH (08:22)
[2019-05-06] MEDS: NICOTINE 21MG PATCH TD SCH (08:22)
[2019-05-06] MEDS ORDERED: MONT10TA21 PO (13:53)
[2019-05-06] MEDS ORDERED: CLAR10 PO (13:53)
[2019-05-06] MEDS ORDERED: BENZ100C86 PO (13:53)
[2019-05-06] MEDS ORDERED: AZIT500T8 PO (13:53)
[2019-05-06] MEDS ORDERED: PREDNISONE 20MG TABLET PO SCH (18:00)
== END 2019-05-06 18:27 | disposition home or self-care (01) | DRG 720 ==
LOC: ER 20:35 → 5EST 23:54 → EDBEDREQTM 23:56 → EDBEDREQ 23:56 → EDBEDREQSVC 05-04 12:31 → ENRESERV 05-04 21:04
PROVIDERS: ADMIT Internal Medicine; ATTEND Internal Medicine
PROC: 5A09357 Assistance with Respiratory Ventilation, Less than 24 Consecutive Hours, Continuous Positive Airway Pressure (ICD-10-PCS; 2019-05-03)
PROC: 5A09357 Assistance with Respiratory Ventilation, Less than 24 Consecutive Hours, Continuous Positive Airway Pressure (ICD-10-PCS; 2019-05-04)
PROC: 5A09357 Assistance with Respiratory Ventilation, Less than 24 Consecutive Hours, Continuous Positive Airway Pressure (ICD-10-PCS; 2019-05-05)
PROC: 5A09357 Assistance with Respiratory Ventilation, Less than 24 Consecutive Hours, Continuous Positive Airway Pressure (ICD-10-PCS; principal; 2019-05-06)
DX: A41.9 Sepsis, unspecified organism (principal); J96.00 Acute respiratory failure, unspecified whether with hypoxia or hypercapnia; J44.0 Chronic obstructive pulmonary disease with (acute) lower respiratory infection; J44.1 Chronic obstructive pulmonary disease with (acute) exacerbation; R13.10 Dysphagia, unspecified; J20.9 Acute bronchitis, unspecified; I10 Essential (primary) hypertension; E11.9 Type 2 diabetes mellitus without complications; R19.7 Diarrhea, unspecified; F17.210 Nicotine dependence, cigarettes, uncomplicated; F10.10 Alcohol abuse, uncomplicated; T46.5X6A Underdosing of other antihypertensive drugs, initial encounter; Y92.89 Other specified places as the place of occurrence of the external cause
CPT/HCPCS: 36415; 36600; 71045; 80048; 80053; 80061; 82375; 82805; 82962; 83605; 83735; 83880; 84100; 84443; 84484; 85025; 87804; 90686; 92610; 93005; 93970; 94640; 94660; 96365; 96367; 96368; 96375; 99285; J0456; J0696; J1650; J2920; J2930; J3475; J3490; J7030; J7060; J7608; J7626

== ENCOUNTER 2019-08-16 19:21 | Emergency (ER) | payer MEDICAID ==
[~2019-08-16] VITALS: Ht 180.3 cm; Wt 102.0 kg
[~2019-08-16 19:21] MED LIST changes: -ALBUTEROL INH; +AZIT500T8 PO; +BENZ100C86 PO; +CLAR10 PO; +MONT10TA21 PO; -SINGULAR; -XOPENEX
[2019-08-16] MEDS ORDERED: SODIUM CHLORIDE 0.9% 500 ML IV ONE (20:00)
[2019-08-16] MEDS ORDERED: DIPHENHYDRAMINE 50MG/ML VIAL IV ONE (20:00)
[2019-08-16] MEDS ORDERED: METOCLOPRAMIDE HCL 10MG/2ML VIAL IV ONE (20:00)
[2019-08-16] MEDS ORDERED: CLONIDINE 0.2MG TABLET PO ONE (20:00)
[2019-08-16 20:10] LABS: BASOPHILS % 1.3 % (0.0-2.0); EOSINOPHILS % 3.9 % (0.0-5.0); HEMATOCRIT. 38.4 % (42.0-52.0); HEMOGLOBIN. 13.2 g/dL (14.0-18.0); LYMPHOCYTES % 38.1 % (20.0-50.0); MEAN CORPUSCULAR HEMOGLOBIN 33.1 pg (28.0-32.0); MEAN CORPUSCULAR VOLUME 96.4 fL (80.0-94.0); MEAN PLATELET VOLUME 8.2 fl (7.4-10.4); MONOCYTES % 9.2 % (2.0-8.0); NEUTROPHILS % 47.5 % (40.0-76.0); PLATELET 276 x1000/uL (130-400); RED BLOOD CELL COUNT 3.98 mill/uL (4.7-6.1)
[2019-08-16 20:17] LABS: CHLORIDE 110 mEq/L (98-107)
[2019-08-16 22:59] VITALS: BP 148/100
[2019-08-16] MEDS ORDERED: LABETALOL 5MG/ML SYR 20 MG/4 ML SYRINGE IV ONE (23:15)
== END 2019-08-17 01:00 | disposition home or self-care (01) ==
LOC: ER 19:21 → CANBEDREQ 08-17 08:17
DX: I16.1 Hypertensive emergency (principal); H53.8 Other visual disturbances; J44.9 Chronic obstructive pulmonary disease, unspecified; E11.9 Type 2 diabetes mellitus without complications; I10 Essential (primary) hypertension; Z79.899 Other long term (current) drug therapy
CPT/HCPCS: 36415; 70450; 70486; 80053; 83880; 84484; 85025; 93005; 96374; 99291; J3490; J7040

== ENCOUNTER 2020-02-17 09:39 | Inpatient (IN) | payer MEDICAID ==
[~2020-02-17] VITALS: Ht 167.6 cm; Wt 88.5 kg
[2020-02-17] MEDS ORDERED: MORPHINE SULFATE 4 MG/ML CPJ (NOT FOR IM USE) IV STA (09:52)
[2020-02-17] MEDS ORDERED: ONDANSETRON HCL 4MG/2ML INJ IV STA (09:52)
[2020-02-17] MEDS ORDERED: SODIUM CHLORIDE 0.9% 1,000 ML IV ONE (10:00)
[2020-02-17 10:22] LABS: BASOPHILS % 0.7 % (0.0-2.0); EOSINOPHILS % 12.4 % (0.0-5.0); HEMOGLOBIN. 12.3 g/dL (14.0-18.0); LYMPHOCYTES % 26.9 % (20.0-50.0); MEAN CORPUSCULAR HEMOGLOBIN 32.2 pg (28.0-32.0); MEAN CORPUSCULAR VOLUME 94.6 fL (80.0-94.0); MEAN PLATELET VOLUME 7.5 fl (7.4-10.4); PLATELET 290 x1000/uL (130-400); RED CELL DISTRIBUTION WIDTH 14.1 % (11.6-14.6)
[2020-02-17 10:24] LABS: CHLORIDE 107 mEq/L (98-107)
[2020-02-17 12:07] LABS: CLARITY URINE CLEAR (CLEAR); COLOR URINE YELLOW (YELLOW); KETONES URINE NEGATIVE (NEGATIVE); LEUKOCYTE ESTERASE URINE NEGATIVE (NEGATIVE); NITRITE URINE NEGATIVE (NEGATIVE); OCCULT BLOOD URINE NEGATIVE (NEGATIVE); PROTEIN URINE NEGATIVE (NEGATIVE); SPECIFIC GRAVITY URINE 1.014 (1.005-1.030); UROBILINOGEN URINE 0.2 E.U./dL (0.2-1.0)
[2020-02-17] MEDS ORDERED: METHYLPREDNISOLONE SOD SUCC 125 MG/2 ML VIAL IV STA (12:29)
[2020-02-17] MEDS ORDERED: ALBUTEROL (0.083%) 2.5MG/3ML NEB HHN STA (12:29)
[2020-02-17] MEDS ORDERED: ACETAMINOPHEN 325MG TABLET PO PRN (15:00)
[2020-02-17] MEDS ORDERED: MORPHINE SULFATE 2 MG/ML CPJ (NOT FOR IM USE) IV PRN (15:00)
[2020-02-17] MEDS ORDERED: ONDANSETRON HCL 4MG/2ML INJ IV PRN (15:00)
[2020-02-17 16:00] VITALS: BP 113/70
[2020-02-17] MEDS ORDERED: INFLUENZA VACCINE 05/PF 0.5 ML VIAL IM ONE (16:45)
[2020-02-17 17:04] VITALS: BP 113/70
[2020-02-17] MEDS ORDERED: ALBU6.7H9 INH (17:23)
[2020-02-17] MEDS ORDERED: BECL10.62 INH (17:23)
[2020-02-17] MEDS ORDERED: MOME13HF INH (17:23)
[2020-02-17] MEDS ORDERED: PRED1TAB PO (17:23)
[2020-02-17 18:00] VITALS: BP 100/69
[2020-02-17] MEDS: FAMOTIDINE 20MG/2ML VIAL IV SCH (18:01)
[2020-02-17 20:04] VITALS: BP 117/66
[2020-02-17] MEDS ORDERED: *PATIENT'S OWN MEDICATION STORAGE XX SCH (20:45)
[2020-02-17] MEDS: METHYLPREDNISOLONE SOD SUCC 40 MG/ML VIAL IV SCH (21:00)
[2020-02-17 22:04] VITALS: BP 90/41
[2020-02-18] VITALS (12 sets, daily range): BP systolic 98–121; BP diastolic 59–75
[2020-02-18] MEDS: IPRATROPIUM/ALBUTEROL 0.5-3(2.5)MG/3ML NEB HHN SCH ×6 (00:34→20:35)
[2020-02-18] MEDS: METHYLPREDNISOLONE SOD SUCC 40 MG/ML VIAL IV SCH ×3 (06:21→21:00)
[2020-02-18] MEDS ORDERED: P20 MT (09:02)
[2020-02-18] MEDS ORDERED: ALBU6.7H9 INH (09:02)
[2020-02-18] MEDS ORDERED: MOME13HF INH (09:02)
[2020-02-18] MEDS: FAMOTIDINE 20MG/2ML VIAL IV SCH (10:04)
[2020-02-18] MEDS ORDERED: ALBUTEROL 6.7GM HFA INHALER ORI PRN (12:45)
[2020-02-18] MEDS ORDERED: ALBUTEROL (0.083%) 2.5MG/3ML NEB HHN PRN (13:00)
[2020-02-18 17:43] LABS: *AMPHETAMINES SCREEN URINE NEGATIVE (NEGATIVE)
[2020-02-18 17:45] LABS: *BARBITURATES SCREEN URINE NEGATIVE (NEGATIVE); *BENZODIAZEPINES SCREEN URINE NEGATIVE (NEGATIVE); *COCAINE SCREEN URINE NEGATIVE (NEGATIVE); CANNABINOID URINE SCREEN NEGATIVE (NEGATIVE); METHADONE URINE SCREEN NEGATIVE (NEGATIVE); OPIATES URINE SCREEN PRESUMTIVE POSITIVE (NEGATIVE); PHENCYCLIDINE URINE SCREEN NEGATIVE (NEGATIVE)
[2020-02-18] MEDS: ENOXAPARIN 30MG/0.3ML SYR SUBCUT SCH ×2 (20:59→21:03)
[2020-02-19] VITALS (7 sets, daily range): BP systolic 94–128; BP diastolic 49–82
[2020-02-19] MEDS: IPRATROPIUM/ALBUTEROL 0.5-3(2.5)MG/3ML NEB HHN SCH ×3 (00:35→08:47)
[2020-02-19] MEDS: METHYLPREDNISOLONE SOD SUCC 40 MG/ML VIAL IV SCH (05:38)
[2020-02-19 07:31] LABS: HEMATOCRIT 34.8 % (42.0-52.0); HEMOGLOBIN 11.7 g/dL (14.0-18.0); MEAN CORPUSCULAR HEMOGLOBIN 32.3 pg (28.0-32.0); MEAN CORPUSCULAR VOLUME 95.8 fL (80.0-94.0); PLATELET 281 x1000/uL (130-400); RED BLOOD CELL COUNT 3.64 mill/uL (4.7-6.1)
[2020-02-19 07:38] LABS: CHLORIDE 106 mEq/L (98-107)
[2020-02-19] MEDS: FAMOTIDINE 20MG/2ML VIAL IV SCH (09:30)
[2020-02-19] MEDS: ENOXAPARIN 30MG/0.3ML SYR SUBCUT SCH (09:31)
== END 2020-02-19 11:58 | disposition home or self-care (01) | DRG 140 ==
LOC: ER 09:39 → 3WST 13:59 → EDBEDREQTM 14:02 → EDBEDREQ 14:02 → ENRESERV 15:03
PROVIDERS: ADMIT Internal Medicine; ATTEND Internal Medicine
DX: J44.1 Chronic obstructive pulmonary disease with (acute) exacerbation (principal); K52.9 Noninfective gastroenteritis and colitis, unspecified; E11.9 Type 2 diabetes mellitus without complications; I10 Essential (primary) hypertension; F17.210 Nicotine dependence, cigarettes, uncomplicated; D64.9 Anemia, unspecified; Z98.2 Presence of cerebrospinal fluid drainage device; Z71.6 Tobacco abuse counseling
CPT/HCPCS: 36415; 71045; 74176; 80048; 80053; 80305; 81003; 85025; 85027; 90686; 93005; 94640; 99291; J1650; J2270; J2405; J2920; J2930; J3490; J7030

== ENCOUNTER 2020-05-08 16:29 | Emergency (ER) | payer MEDICAID ==
[~2020-05-08] VITALS: Ht 172.7 cm; Wt 85.0 kg
[~2020-05-08 16:29] MED LIST changes: +ALBU6.7H9 INH; -AZIT500T8 PO; +BECL10.62 INH; -BENZ100C86 PO; +MOME13HF INH; +P20 MT
[2020-05-08] MEDS ORDERED: ACETAMINOPHEN 325MG TABLET PO ONE (17:00)
[2020-05-08 18:36] LABS: BASOPHILS % 1.1 % (0.0-2.0); EOSINOPHILS % 3.5 % (0.0-5.0); HEMOGLOBIN. 13.2 g/dL (14.0-18.0); LYMPHOCYTES % 39.1 % (20.0-50.0); MEAN CORPUSCULAR HEMOGLOBIN 32.3 pg (28.0-32.0); MEAN CORPUSCULAR VOLUME 95.4 fL (80.0-94.0); MEAN PLATELET VOLUME 7.5 fl (7.4-10.4); NEUTROPHILS % 48.3 % (40.0-76.0); PLATELET 312 x1000/uL (130-400); RED BLOOD CELL COUNT 4.09 mill/uL (4.7-6.1); RED CELL DISTRIBUTION WIDTH 14.5 % (11.6-14.6)
[2020-05-08 18:44] LABS: CHLORIDE 108 mEq/L (98-107)
[2020-05-08 18:50] LABS: ETHANOL BLOOD 121 mg/dL
[2020-05-08 20:35] VITALS: BP 115/75
== END 2020-05-08 20:37 | disposition home or self-care (01) ==
LOC: ER 16:29
DX: R55 Syncope and collapse (principal); S00.01XA Abrasion of scalp, initial encounter; J44.1 Chronic obstructive pulmonary disease with (acute) exacerbation; E11.9 Type 2 diabetes mellitus without complications; I10 Essential (primary) hypertension; X58.XXXA Exposure to other specified factors, initial encounter; Y93.89 Activity, other specified; Y92.89 Other specified places as the place of occurrence of the external cause; Y99.8 Other external cause status
CPT/HCPCS: 36415; 71045; 73560; 80053; 80320; 83605; 84484; 85025; 99285; G0480

== ENCOUNTER 2020-06-13 11:07 | Emergency (ER) | payer MEDICAID ==
[~2020-06-13] VITALS: Ht 167.6 cm; Wt 86.0 kg
[2020-06-13 11:21] VITALS: BP 132/80
[2020-06-13] MEDS ORDERED: ACETAMINOPHEN 325MG TABLET PO ONE (12:00)
== END 2020-06-13 13:25 | disposition home or self-care (01) ==
LOC: ER 11:16
DX: M54.2 Cervicalgia (principal); I10 Essential (primary) hypertension; J44.9 Chronic obstructive pulmonary disease, unspecified; J45.909 Unspecified asthma, uncomplicated; G95.0 Syringomyelia and syringobulbia; Z98.2 Presence of cerebrospinal fluid drainage device
CPT/HCPCS: 99285

== ENCOUNTER 2021-01-08 10:30 | Emergency (ER) | payer MEDICAID ==
[~2021-01-08] VITALS: Ht 177.8 cm; Wt 91.0 kg
[2021-01-08 11:45] LABS: BASOPHILS % 0.7 % (0.0-2.0); EOSINOPHILS % 1.5 % (0.0-5.0); HEMATOCRIT. 40.3 % (42.0-52.0); HEMOGLOBIN. 13.4 g/dL (14.0-18.0); LYMPHOCYTES % 29.1 % (20.0-50.0); MEAN CORPUSCULAR HEMOGLOBIN 31.8 pg (28.0-32.0); MEAN CORPUSCULAR VOLUME 95.7 fL (80.0-94.0); MEAN PLATELET VOLUME 8.2 fl (7.4-10.4); MONOCYTES % 9.2 % (2.0-8.0); NEUTROPHILS % 59.5 % (40.0-76.0); PLATELET 292 x1000/uL (130-400); RED BLOOD CELL COUNT 4.22 mill/uL (4.7-6.1); RED CELL DISTRIBUTION WIDTH 15.5 % (11.6-14.6)
[2021-01-08 11:58] LABS: CHLORIDE 109 mEq/L (98-107)
[2021-01-08 12:55] VITALS: BP 149/87
== END 2021-01-08 13:09 | disposition home or self-care (01) ==
LOC: ER 10:30
DX: M54.2 Cervicalgia (principal); I10 Essential (primary) hypertension; J45.909 Unspecified asthma, uncomplicated; E11.9 Type 2 diabetes mellitus without complications
CPT/HCPCS: 36415; 72141; 80053; 85025; 93005; 99285

== ENCOUNTER 2021-04-27 08:20 | Emergency (ER) | payer MEDICAID ==
[~2021-04-27] VITALS: Ht 175.3 cm; Wt 90.0 kg
[2021-04-27] MEDS ORDERED: KETOROLAC 30MG/ML VIAL IV STA (08:47)
[2021-04-27] MEDS ORDERED: SODIUM CHLORIDE 0.9% 1,000 ML IV ONE (09:00)
[2021-04-27 09:10] LABS: BASOPHILS % 0.6 % (0.0-2.0); EOSINOPHILS % 2.5 % (0.0-5.0); HEMOGLOBIN. 14.1 g/dL (14.0-18.0); LYMPHOCYTES % 22.3 % (20.0-50.0); MEAN CORPUSCULAR HEMOGLOBIN 32.5 pg (28.0-32.0); MEAN CORPUSCULAR VOLUME 94.8 fL (80.0-94.0); MEAN PLATELET VOLUME 8.3 fl (7.4-10.4); MONOCYTES % 11.1 % (2.0-8.0); NEUTROPHILS % 63.5 % (40.0-76.0); PLATELET 261 x1000/uL (130-400); RED BLOOD CELL COUNT 4.33 mill/uL (4.7-6.1); RED CELL DISTRIBUTION WIDTH 14.5 % (11.6-14.6)
[2021-04-27 09:24] LABS: CHLORIDE 108 mEq/L (98-107)
[2021-04-27 09:50] LABS: CHLORIDE 108 mEq/L (98-107)
[2021-04-27 12:15] LABS: CLARITY URINE CLEAR (CLEAR); COLOR URINE DARK YELLOW (YELLOW); KETONES URINE TRACE (NEGATIVE); LEUKOCYTE ESTERASE URINE NEGATIVE (NEGATIVE); NITRITE URINE NEGATIVE (NEGATIVE); OCCULT BLOOD URINE NEGATIVE (NEGATIVE); PH URINE 6.5 (4.5-8.0); PROTEIN URINE NEGATIVE (NEGATIVE); SPECIFIC GRAVITY URINE 1.026 (1.005-1.030); UROBILINOGEN URINE 0.2 E.U./dL (0.2-1.0)
[2021-04-27] MEDS ORDERED: IBUP-2029 MT (12:17)
[2021-04-27 13:00] VITALS: BP 128/74
== END 2021-04-27 13:04 | disposition home or self-care (01) ==
LOC: ER 08:32
DX: M54.30 Sciatica, unspecified side (principal); R43.8 Other disturbances of smell and taste; I10 Essential (primary) hypertension; F17.210 Nicotine dependence, cigarettes, uncomplicated; Z71.6 Tobacco abuse counseling; J44.9 Chronic obstructive pulmonary disease, unspecified; J45.909 Unspecified asthma, uncomplicated; I25.10 Atherosclerotic heart disease of native coronary artery without angina pectoris; K57.90 Diverticulosis of intestine, part unspecified, without perforation or abscess without bleeding
CPT/HCPCS: 36415; 74176; 80048; 80053; 81003; 83690; 85025; 93005; 96361; 96374; 99285; 99406; J1885; J7030

== ENCOUNTER 2021-07-19 07:30 | Emergency (ER) | payer MEDICAID ==
[~2021-07-19] VITALS: Ht 167.6 cm; Wt 70.0 kg
[~2021-07-19 07:30] MED LIST changes: +IBUP-2029 MT
[2021-07-19 09:33] LABS: BASOPHILS % 0.7 % (0.0-2.0); EOSINOPHILS % 1.3 % (0.0-5.0); HEMATOCRIT. 39.1 % (42.0-52.0); HEMOGLOBIN. 13.1 g/dL (14.0-18.0); LYMPHOCYTES % 14.9 % (20.0-50.0); MEAN CORPUSCULAR HEMOGLOBIN 32.1 pg (28.0-32.0); MEAN CORPUSCULAR VOLUME 95.9 fL (80.0-94.0); MEAN PLATELET VOLUME 8.3 fl (7.4-10.4); MONOCYTES % 8.6 % (2.0-8.0); NEUTROPHILS % 74.5 % (40.0-76.0); PLATELET 268 x1000/uL (130-400); RED BLOOD CELL COUNT 4.07 mill/uL (4.7-6.1); RED CELL DISTRIBUTION WIDTH 15.2 % (11.6-14.6)
[2021-07-19 09:43] LABS: CHLORIDE 109 mEq/L (98-107)
[2021-07-19 10:42] VITALS: BP 136/89
[2021-07-19 10:56] LABS: ETHANOL BLOOD < 10 mg/dL
[2021-07-19 12:33] LABS: CLARITY URINE CLEAR (CLEAR); COLOR URINE YELLOW (YELLOW); KETONES URINE TRACE (NEGATIVE); LEUKOCYTE ESTERASE URINE NEGATIVE (NEGATIVE); NITRITE URINE NEGATIVE (NEGATIVE); OCCULT BLOOD URINE NEGATIVE (NEGATIVE); PROTEIN URINE NEGATIVE (NEGATIVE); SPECIFIC GRAVITY URINE 1.017 (1.005-1.030); UROBILINOGEN URINE 0.2 E.U./dL (0.2-1.0)
[2021-07-19] MEDS ORDERED: ASPIRIN 81MG TABLET PO ONE (13:15)
[2021-07-19] MEDS ORDERED: ACETAMINOPHEN 325MG TABLET PO ONE (13:15)
== END 2021-07-19 15:33 | disposition home or self-care (01) ==
LOC: ER 07:39
DX: R10.9 Unspecified abdominal pain (principal); I10 Essential (primary) hypertension; J45.909 Unspecified asthma, uncomplicated; Z79.899 Other long term (current) drug therapy; Z98.890 Other specified postprocedural states
CPT/HCPCS: 36415; 74176; 80053; 80320; 81003; 84484; 85025; 99284; G0480